=== PATIENT | female | born 1975 ===

== ENCOUNTER 2017-04-28 08:36 | Emergency (ER) | payer MEDICAID ==
[2017-04-28 08:45] VITALS: BMI 38.5
--- NOTE | 2017-04-28 09:12 | ED PDOC ---
Arrival/HPI - General Chief Complaint: Flu-like Symptoms Time Seen by Provider: 04/28/17 08:45 Historian: Patient - History of Present Illness Narrative History of Present Illness (Text): 04/28/17 09:11 A 41 year old female, who denies any past medical history, presents to the emergency department complaining of fever, congestion, cough and sore throat for the past three days. Reports she thinks she has the flu. Didn't get the flu shot. Patient denies any other complaints at this time. Time/Duration: < week Symptom Onset: Sudden Symptom Course: Unchanged Activities at Onset: Rest Context: Home Past Medical History - Provider Review Nursing Documentation Reviewed: Yes - Infectious Disease Hx of Infectious Diseases: None - Reproductive Menopause: No - Psychiatric Hx Substance Use: No Family/Social History - Physician Review Nursing Documentation Reviewed: Yes Family/Social History: No Known Family HX Smoking Status: Unknown If Ever Smoked Hx Alcohol Use: No Hx Substance Use: No Allergies/Home Meds Allergies/Adverse Reactions: Allergies No Known Allergies Allergy (Verified 04/28/17 08:52) Home Medications: Home Meds Medication Instructions Recorded Confirmed No Known Home Med 04/28/17 04/28/17 Review of Systems - Physician Review All systems were reviewed & negative as marked: Yes - Review of Systems Constitutional: Fevers ENT: Sore Throat, Sinus Congestion Respiratory: Cough Physical Exam Vital Signs Reviewed: Yes Vital Signs Temp Pulse Resp BP Pulse Ox 04/28/17 14:14 98.7 F 108 H 18 116/69 98 04/28/17 12:59 114 H 18 131/77 98 04/28/17 11:56 99.3 F 105 H 18 138/86 98 04/28/17 10:03 110 H 19 119/75 97 04/28/17 08:44 100.7 F H 115 H 20 163/89 H 97 Temperature: Febrile Blood Pressure: Hypertensive Pulse: Tachycardic Respiratory Rate: Normal Appearance: Positive for: Well-Appearing, Non-Toxic, Comfortable Pain Distress: None Mental Status: Positive for: Alert and Oriented X 3 - Systems Exam Head: Present: Atraumatic, Normocephalic Pupils: Present: PERRL Extroacular Muscles: Present: EOMI Conjunctiva: Present: Normal Mouth: Present: Moist Mucous Membranes Pharnyx: Present: ERYTHEMA Neck: Present: Normal Range of Motion Respiratory/Chest: Present: Clear to Auscultation, Good Air Exchange. No: Respiratory Distress, Accessory Muscle Use Cardiovascular: Present: Regular Rate and Rhythm, Normal S1, S2. No: Murmurs Abdomen: Present: Normal Bowel Sounds. No: Tenderness, Distention, Peritoneal Signs Back: Present: Normal Inspection Upper Extremity: Present: Normal Inspection. No: Cyanosis, Edema Lower Extremity: Present: Normal Inspection. No: Edema Neurological: Present: GCS=15, CN II-XII Intact, Speech Normal Skin: Present: Warm, Dry, Normal Color. No: Rashes Psychiatric: Present: Alert, Oriented x 3, Normal Insight, Normal Concentration Medical Decision Making ED Course and Treatment: 04/28/17 09:11 Impression: A 41 year old female with fever, cough, congestion and sore throat. Plan: -- chest xray -- CT chest -- Tylenol, Rocephin, Zithromax -- Reassess and disposition Progress Notes: 04/28/17 09:55 chest xray- Creator : Sridhar Aragon MD IMPRESSION: No active disease. 04/28/17 11:27 CT Chest without contrast Creator : Sridhar Aragon MD FINDINGS: LUNGS: There is a focal area of consolidation in the right lower lobe posteriorly consistent with pneumonia. Air bronchograms are seen. Minimal patchy interstitial changes are seen in the right upper lobe. MEDIASTINUM: Unremarkable thoracic aorta. No aneurysm. Normal sized heart. Main pulmonary artery unremarkable. No vascular congestion. No lymphadenopathy. PLEURA: No pleural fluid. No pneumothorax. BONES: No fracture. No destructive lesion. UPPER ABDOMEN: Grossly unremarkable. OTHER FINDINGS: None. IMPRESSION: Focal area of consolidation in the right lower lobe consistent with pneumonia. = - Lab Interpretations Lab Results: 04/28/17 10:30 04/28/17 10:30 Lab Results 04/28/17 10:30: Urine Color Yellow, Urine Appearance Clear, Urine pH 6.0, Ur Specific [place] 1.020, Urine Protein Negative, Urine Glucose (UA) Negative, Urine Ketones Negative, Urine Blood Moderate H, Urine Nitrate Negative, Urine Bilirubin Negative, Urine Urobilinogen 0.2, Ur Leukocyte Esterase Negative, Urine RBC 15 - 20, Urine WBC 1 - 3, Ur Epithelial Cells 6 - 8, Urine Bacteria Many, Urine Other Uyeast 04/28/17 10:30: Influenza Typ A,B (EIA) Negative for flu a/b 04/28/17 10:30: Sodium 138, Potassium 4.2, Chloride 98, Carbon Dioxide 27, Anion Gap 17, BUN 9, Creatinine 0.6 L, Est GFR ( Amer) > 60, Est GFR (Non -Af Amer) > 60, Random Glucose 141 H, Calcium 9.0, Total Bilirubin 0.4, AST 30, ALT 45, Alkaline Phosphatase 61, Total Protein 7.8, Albumin 4.3, Globulin 3.5, Albumin/Globulin Ratio 1.2 04/28/17 10:30: PT 12.9 H, INR 1.12 H, APTT 29.4 04/28/17 10:30: WBC 15.2 H, RBC 4.37, Hgb 12.9, Hct 38.8, MCV 88.8, MCH 29.5, MCHC 33.2, RDW 12.7, Plt Count 242, MPV 9.4, Gran % 90.1 H, Lymph % (Auto) 4.2 L , [place] % (Auto) 5.3, Eos % (Auto) 0.3 L, Baso % (Auto) 0.1, Gran # 13.70 H, Lymph # (Auto) 0.6 L, [place] # (Auto) 0.8 H, Eos # (Auto) 0.0, Baso # (Auto) 0.02 , Neutrophils % (Manual) 84 H, Band Neutrophils % 6 H, Lymphocytes % (Manual) 4 L, Monocytes % (Manual) 5, Metamyelocytes % 1 - RAD Interpretation Radiology Orders: 04/28/17 09:05 CXR [CHEST TWO VIEWS (PA/LAT)] [RAD] Stat 04/28/17 10:41 CHEST W/O CONTRAST [CT] Stat - Medication Orders Current Medication Orders: Acetaminophen (Tylenol 325mg Tab) 650 mg PO Q6H PRN PRN Reason: Fever >100.4 F Albuterol Sulfate (Albuterol 0.083% Inhal Cassia (2.5 Mg/3 Ml) Ud) 2.5 mg IH Q2H PRN PRN Reason: Shortness of Breath Azithromycin (Zithromax) 250 mg PO DAILY TISHA PRN Reason: Protocol Famotidine (Pepcid) 20 mg PO BID [facility] Guaifenesin/Dextromethorphan (Robitussin Dm) 5 ml PO Q4H PRN PRN Reason: Cough Ceftriaxone Sodium (Rocephin 1 Gram Ivpb) 1 gm in 100 mls @ 100 mls/hr IVPB DAILY TISHA PRN Reason: Protocol Sodium Chloride (Sodium Chloride 0.9%) 100 mls @ 100 mls/hr IV .Q1H TISHA Last Admin: 04/28/17 13:59 Dose: 100 mls/hr eMAR Start Stop Document 04/28/17 13:59 OCS (Rec: 04/28/17 13:59 OCS [id number]) Intravenous Solution Start Date 04/28/17 Start Time 13:59 Ibuprofen (Motrin Tab) 400 mg PO Q6H PRN PRN Reason: pain, fever Oseltamivir Phosphate (Tamiflu Cap) 75 mg PO BID TISHA PRN Reason: Protocol Stop: 05/03/17 12:24 Discontinued Medications Acetaminophen (Tylenol 325mg Tab) 975 mg PO STAT STA Stop: 04/28/17 09:06 Last Admin: 04/28/17 09:53 Dose: 975 mg MAR Pain/Vitals Document 04/28/17 09:53 LAC (Rec: 04/28/17 09:54 LAC [id number] Pain Reassessment Is This A Pain ReAssessment? No Ceftriaxone Sodium (Rocephin 2 Gm Ivpb) 2 gm in 100 mls @ 100 mls/hr IVPB STAT STA PRN Reason: Protocol Stop: 04/28/17 10:49 Last Admin: 04/28/17 10:24 Dose: 100 mls/hr eMAR Start Stop Document 04/28/17 10:24 LAC (Rec: 04/28/17 10:24 LAC [id number]) Intravenous Solution Start Date 04/28/17 Start Time 10:24 End Date 04/28/17 End time 11:24 Total Infusion Time 60 Azithromycin (Zithromax 500mg In Ns) 500 mg in 250 mls @ 167 mls/hr IVPB STAT STA PRN Reason: Protocol Stop: 04/28/17 11:19 Last Admin: 04/28/17 12:31 Dose: 167 mls/hr eMAR Start Stop Document 04/28/17 12:31 LAC (Rec: 04/28/17 12:31 LAC [id number]) Intravenous Solution Start Date 04/28/17 Start Time 12:31 End Date 04/28/17 End time 13:31 Total Infusion Time 60 Azithromycin (Zithromax 500mg In Ns) 500 mg in 250 mls @ 167 mls/hr IVPB STAT STA PRN Reason: Protocol Stop: 04/28/17 13:08 Oseltamivir Phosphate (Tamiflu Cap) 75 mg PO STAT STA PRN Reason: Protocol Stop: 04/28/17 11:44 Last Admin: 04/28/17 12:58 Dose: 75 mg - Scribe Statement The provider has reviewed the documentation as recorded by the Marguerite Mohr Provider Scribe Attestation: All medical record entries made by the Marguerite were at my direction and personally dictated by me. I have reviewed the chart and agree that the record accurately reflects my personal performance of the history, physical exam, medical decision making, and the department course for this patient. I have also personally directed, reviewed, and agree with the discharge instructions and disposition. Disposition/Present on Arrival - Present on Arrival Any Indicators Present on Arrival: No History of DVT/PE: No History of Uncontrolled Diabetes: No Urinary Catheter: No History of Decub. Ulcer: No History Surgical Site Infection Following: None - Disposition Have Diagnosis and Disposition been Completed?: Yes Diagnosis: Sepsis, Pneumonia Disposition: HOSPITALIZED Disposition Time: 03:30 Condition: STABLE
[2017-04-28] MEDS ORDERED: cefTRIAXone 2 GM IN NS 2 GM/100 ML BAG IVPB STA (09:50)
[2017-04-28] MEDS ORDERED: Azithromycin 500MG/NS 250ml 500 MG/250 ML BAG IVPB STA ×2 (09:50→11:39)
--- NOTE | 2017-04-28 09:54 | RAD ---
HISTORY: cough COMPARISON: No prior. TECHNIQUE: Chest PA and lateral FINDINGS: LUNGS: No active pulmonary disease. PLEURA: No significant pleural effusion identified. No pneumothorax apparent. CARDIOVASCULAR: Normal. OSSEOUS STRUCTURES: No significant abnormalities. VISUALIZED UPPER ABDOMEN: Normal. OTHER FINDINGS: None. IMPRESSION: No active disease.
[2017-04-28 10:39] LABS: BASO # 0.02 K/mm3 (0.0-2.0); BASO % 0.1 % (0.0-3.0); EOS % 0.3 % (1.5-5.0); GRAN % 90.1 % (50.0-68.0); HEMOGLOBIN 12.9 g/dL (12.0-16.0); LYMPH # 0.6 (1.2-3.4); LYMPH % 4.2 % (22.0-35.0); MEAN CELL VOLUME 88.8 fl (80.0-105.0); MEAN CORPUSCULAR HEMOGLOBIN 29.5 pg (25.0-35.0); MEAN CORPUSCULAR HGB CONC 33.2 g/dl (31.0-37.0); MEAN PLATELET VOLUME 9.4 fl (7.0-11.0); MONO # 0.8 (0.1-0.6); MONO % 5.3 % (1.0-6.0); PLATELET COUNT 242 10^3/uL (120.0-450.0); RBC 4.37 10^6/uL (3.5-6.1); RED CELL DISTRIBUTION WIDTH 12.7 % (11.5-14.5); URINE BILIRUBIN NEGATIVE (NEGATIVE); URINE BLOOD MODERATE (NEGATIVE); URINE GLUCOSE (UA) NEGATIVE (NEGATIVE); URINE LEUKOCYTE ESTERASE NEGATIVE Leu/uL (NEGATIVE); URINE NITRATE NEGATIVE (NEGATIVE); URINE PROTEIN NEGATIVE mg/dL (<30 mg/dL); URINE UROBILINOGEN 0.2 E.U./dL (<1 E.U./dL); WHITE BLOOD COUNT 15.2 10^3/ul (4.5-11.0)
[2017-04-28 10:40] LABS: URINE APPEARANCE CLEAR (CLEAR); URINE COLOR YELLOW (YELLOW)
[2017-04-28 10:48] LABS: URINE RBC 15 - 20 /hpf (0-2)
[2017-04-28 10:49] LABS: URINE BACTERIA MANY (NEG)
[2017-04-28 10:50] LABS: ALB/GLOB RATIO 1.2 (1.1-1.8); ALBUMIN 4.3 g/dL (3.0-4.8); GFR AFRICAN-AMERICAN > 60; GFR NON-AFRICAN AMERICAN > 60
[2017-04-28 10:51] LABS: INR 1.12 (0.93-1.08); PARTIAL THROMBOPLASTIN TIME 29.4 Seconds (25.1-36.5); PROTHROMBIN TIME 12.9 SECONDS (9.4-12.5)
[2017-04-28 11:08] LABS: BAND 6 % (0-2); LYMPHOCYTE 4 % (22.0-35.0); METAMYELOCYTE 1 %; MONOCYTE 5 % (1.0-6.0); NEUTROPHIL 84 % (50.0-70.0)
--- NOTE | 2017-04-28 11:25 | CT ---
PROCEDURE: CT Chest without contrast HISTORY: cough r/o pna COMPARISON: None. TECHNIQUE: Contiguous axial images were obtained through the chest without intravenous contrast enhancement. Sagittal and coronal reconstructions were performed. Radiation dose (DLP): 496 mGy-cm. This CT exam was performed using one or more of the following dose reduction techniques: Automated exposure control, adjustment of the mA and/or kV according to patient size, and/or use of iterative reconstruction technique. FINDINGS: LUNGS: There is a focal area of consolidation in the right lower lobe posteriorly consistent with pneumonia. Air bronchograms are seen. Minimal patchy interstitial changes are seen in the right upper lobe. MEDIASTINUM: Unremarkable thoracic aorta. No aneurysm. Normal sized heart. Main pulmonary artery unremarkable. No vascular congestion. No lymphadenopathy. PLEURA: No pleural fluid. No pneumothorax. BONES: No fracture. No destructive lesion. UPPER ABDOMEN: Grossly unremarkable. OTHER FINDINGS: None. IMPRESSION: Focal area of consolidation in the right lower lobe consistent with pneumonia.
[2017-04-28 11:26] LABS: ALT/SGPT 45 U/L (7-56); AST/SGOT 30 U/L (14-36); BLOOD UREA NITROGEN 9 mg/dL (7-21)
[2017-04-28] MEDS ORDERED: Albuterol 0.083% Inhal Sol (2.5 mg/3 mL) UD IH PRN (12:20)
--- NOTE | 2017-04-28 12:37 | CP.PCM.HP ---
<Viktor Benson - Last Filed: 04/28/17 13:25> History of Present Illness - History of Present Illness History of Present Illness: PGY-1 H&P for [address] Santo Hospitalist Service: CC: Flu-like symptoms This is a 41 year old female with no significant PMHx who presents complaining of flu-like symptoms for the past 3 days. Patient states that she began having generalized body aches along with fever, sore throat, cough productive with green sputum, post nasal drip. Patient stated that she felt very weak today, and that is what prompted her to seek medical help. Patient has tried Motrin which has helped with the body aches. Patient unable to describe what kind of pain she is experiencing but states that it is an 8/10. 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 PMHx: Denies PSHx: Denies Allergies: NKDA Social: Former smoker, started age 16 and smoked 1 ppd until quitting 12 years ago. Social drinker (wine). Denies drug use. 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 Family Hx: Mother with asthma and hypertension PMD: Dr. Scott at the [facility] Home medications: Motrin and Excedrin prn Present on Admission - Present on Admission Any Indicators Present on Admission: No Review of Systems - Constitutional Constitutional: Fever, Other (generalized body aches). absent: Chills - EENT Eyes: absent: Change in Vision Ears: absent: Decreased Hearing Nose/Mouth/Throat: Post Nasal Drip, Sore Throat - Cardiovascular Cardiovascular: absent: Chest Pain - Respiratory Respiratory: Cough (with green sputum). absent: Dyspnea, Wheezing - Gastrointestinal Gastrointestinal: absent: Abdominal Pain, Constipation, Diarrhea, Nausea, Vomiting - Musculoskeletal Musculoskeletal: Other (generalized body aches) - Integumentary Integumentary: absent: Rash - Neurological Neurological: Weakness - Psychiatric Psychiatric: absent: Anxiety - Endocrine Endocrine: absent: Palpitations Past Patient History - Infectious Disease Hx of Infectious Diseases: None - Past Social History Smoking Status: Unknown If Ever Smoked - PSYCHIATRIC Hx Substance Use: No Meds Allergies/Adverse Reactions: Allergies Allergy/AdvReac Type Severity Reaction Status Date / Time No Known Allergies Allergy Verified 04/28/17 08:52 Physical Exam - Constitutional Appears: No Acute Distress - Head Exam Head Exam: ATRAUMATIC, NORMOCEPHALIC - Eye Exam Eye Exam: EOMI, PERRL - ENT Exam Additional comments: Erythematous and boggy nasal turbinates No pharyngeal exudates or erythema. Mucous membranes moist. Tympanic membranes intact without effusion. - Neck Exam Neck exam: Negative for: Lymphadenopathy - Respiratory Exam Respiratory Exam: Decreased Breath Sounds (Right lower lung field), Clear to Auscultation Bilateral, NORMAL BREATHING PATTERN. absent: Rales, Rhonchi, Wheezes - Cardiovascular Exam Cardiovascular Exam: REGULAR RHYTHM, +S1, +S2 - GI/Abdominal Exam GI & Abdominal Exam: Normal Bowel Sounds, Soft. absent: Distended, Firm, Guarding, Tenderness Additional comments: obese body habitus - Extremities Exam Extremities exam: Positive for: pedal pulses present. Negative for: pedal edema , tenderness - Back Exam Back exam: absent: CVA tenderness (L), CVA tenderness (R) - Neurological Exam Neurological exam: Alert, CN II-XII Intact, Oriented x3 - Psychiatric Exam Psychiatric exam: Normal Affect, Normal Mood - Skin Skin Exam: Dry, Intact, Normal Color, Warm Results - Vital Signs Recent Vital Signs: Last Vital Signs Temp 99.3 F 04/28/17 11:56 Pulse 105 H 04/28/17 11:56 Resp 18 04/28/17 11:56 BP 138/86 04/28/17 11:56 Pulse Ox 98 04/28/17 11:56 - Labs Result Diagrams: 04/28/17 10:30 04/28/17 10:30 Assessment & Plan - Assessment and Plan (Free Text) Assessment: This is a 41 year old female with no significant past medical history presenting for flu-like symptoms for the past 3 days. Patient found to have right lower lobe pneumonia likely superimposed over viral syndrome. Plan: 1. Right lower Lobe Pneumonia As evidenced by consolidation on the right lower lobe seen on CT imaging Azithromycin 500 mg IV daily Rocephin 1 gm IV daily Alternate Tylenol and Motrin prn for symptomatic management Robitussin DM prn 2. Viral syndrome Although rapid flu negative, will treat empirically with 5 days of Tamiflu Encouraged hydration 3. Tobacco abuse Approximately 14 pack year history, quit 12 years ago 4. Prophylaxis GI: Pepcid DVT: SCDs Patient seen and discussed with Dr. Santo <Rangasamy,Ajantha - Last Filed: 04/28/17 16:27> Results - Vital Signs Recent Vital Signs: Last Vital Signs Temp 98.7 F 04/28/17 14:14 Pulse 108 H 04/28/17 14:14 Resp 18 04/28/17 14:14 BP 116/69 04/28/17 14:14 Pulse Ox 98 04/28/17 14:14 - Labs Result Diagrams: 04/28/17 10:30 04/28/17 10:30 Attending/Attestation - Attestation I have personally seen and examined this patient.: Yes I have fully participated in the care of the patient.: Yes I have reviewed all pertinent clinical information: Yes Notes (Text): 04/28/17 15:55 attending note; Patient seen and examined with resident. Patient is a 41 year old female with no significant PMHx who presents complaining of flu-like symptoms for the past 3 days. Patient states that she began having generalized body aches along with fever, sore throat, cough productive with green sputum, post nasal drip. chest CT showed focal area of consolidation in the right lower lobe. Started on IV Rocephin and Zithromax. Tylenol/Motrin for fever control. Generalized malaise; continue IV fluids. rapid flu is negative. monitor fever trend. Upon discharge the patient will follow-up with PMD . 04/28/17 16:27
[2017-04-28] MEDS ORDERED: Sodium Chloride 0.9% 100 ML IV SCH (13:15)
[2017-04-28] MEDS ORDERED: guaiFENesin DM 100 mg-10 mg/5 ml UD PO PRN (13:35)
[2017-04-28] MEDS ORDERED: Sodium Chloride 0.9% 1,000 ML IV SCH (22:51)
[2017-04-29 06:45] LABS: BASO # 0.01 K/mm3 (0.0-2.0); BASO % 0.1 % (0.0-3.0); EOS # 0.2 (0.0-0.7); GRAN # 4.95 (1.4-6.5); GRAN % 63.4 % (50.0-68.0); LYMPH # 1.9 (1.2-3.4); LYMPH % 24.1 % (22.0-35.0); MEAN CORPUSCULAR HEMOGLOBIN 29.4 pg (25.0-35.0); MEAN CORPUSCULAR HGB CONC 33.1 g/dl (31.0-37.0); MEAN PLATELET VOLUME 9.5 fl (7.0-11.0); MONO # 0.8 (0.1-0.6); MONO % 10.4 % (1.0-6.0); RBC 4.08 10^6/uL (3.5-6.1); RED CELL DISTRIBUTION WIDTH 12.7 % (11.5-14.5); WHITE BLOOD COUNT 7.8 10^3/ul (4.5-11.0)
[2017-04-29 07:47] LABS: ALB/GLOB RATIO 1.2 (1.1-1.8); ALBUMIN 3.7 g/dL (3.0-4.8); ALT/SGPT 35 U/L (7-56); AST/SGOT 25 U/L (14-36); BLOOD UREA NITROGEN 7 mg/dL (7-21); CALCIUM 8.3 mg/dL (8.4-10.5); GFR AFRICAN-AMERICAN > 60; GFR NON-AFRICAN AMERICAN > 60
[2017-04-29 08:06] VITALS: RESP 16; O2SAT 99
[2017-04-29] MEDS ORDERED: cefTRIAXone 1 gm 1 GM/100 ML BAG IVPB SCH (10:00)
--- NOTE | 2017-04-29 10:02 | CP.PCM.DIS ---
<Viktor Benson S - Last Filed: 04/29/17 12:16> Provider - Provider Date of Admission: 04/28/17 11:42 Attending physician: Valerie Santo MD Primary care physician: Dr. Scott Time Spent in preparation of Discharge (in minutes): 35 Diagnosis - Discharge Diagnosis (1) Pneumonia Status: Acute Priority: High (2) Viral syndrome Status: Acute Priority: High Hospital Course - Lab Results Lab Results: Most Recent Lab Values WBC 7.8 10^3/ul (4.5-11.0) D 04/29/17 06:20 RBC 4.08 10^6/uL (3.5-6.1) 04/29/17 06:20 Hgb 12.0 g/dL (12.0-16.0) 04/29/17 06:20 Hct 36.3 % (36.0-48.0) 04/29/17 06:20 MCV 89.0 fl (80.0-105.0) 04/29/17 06:20 MCH 29.4 pg (25.0-35.0) 04/29/17 06:20 MCHC 33.1 g/dl (31.0-37.0) 04/29/17 06:20 RDW 12.7 % (11.5-14.5) 04/29/17 06:20 Plt Count 243 10^3/uL (120.0-450.0) 04/29/17 06:20 MPV 9.5 fl (7.0-11.0) 04/29/17 06:20 Gran % 63.4 % (50.0-68.0) 04/29/17 06:20 Lymph % (Auto) 24.1 % (22.0-35.0) 04/29/17 06:20 [place] % (Auto) 10.4 % (1.0-6.0) H 04/29/17 06:20 Eos % (Auto) 2.0 % (1.5-5.0) 04/29/17 06:20 Baso % (Auto) 0.1 % (0.0-3.0) 04/29/17 06:20 Gran # 4.95 (1.4-6.5) 04/29/17 06:20 Lymph # (Auto) 1.9 (1.2-3.4) 04/29/17 06:20 [place] # (Auto) 0.8 (0.1-0.6) H 04/29/17 06:20 Eos # (Auto) 0.2 (0.0-0.7) 04/29/17 06:20 Baso # (Auto) 0.01 K/mm3 (0.0-2.0) 04/29/17 06:20 Neutrophils % (Manual) 84 % (50.0-70.0) H 04/28/17 10:30 Band Neutrophils % 6 % (0-2) H 04/28/17 10:30 Lymphocytes % (Manual) 4 % (22.0-35.0) L 04/28/17 10:30 Monocytes % (Manual) 5 % (1.0-6.0) 04/28/17 10:30 Metamyelocytes % 1 % 04/28/17 10:30 PT 12.9 SECONDS (9.4-12.5) H 04/28/17 10:30 INR 1.12 (0.93-1.08) H 04/28/17 10:30 APTT 29.4 Seconds (25.1-36.5) 04/28/17 10:30 Sodium 140 mmol/L (132-148) 04/29/17 06:20 Potassium 3.8 mmol/L (3.6-5.0) 04/29/17 06:20 Chloride 103 mmol/L (98-107) 04/29/17 06:20 Carbon Dioxide 27 mmol/L (21-33) 04/29/17 06:20 Anion Gap 14 (10-20) 04/29/17 06:20 BUN 7 mg/dL (7-21) 04/29/17 06:20 Creatinine 0.6 mg/dl (0.7-1.2) L 04/29/17 06:20 Est GFR ( Amer) > 60 04/29/17 06:20 Est GFR (Non-Af Amer) > 60 04/29/17 06:20 Random Glucose 105 mg/dL (70-110) 04/29/17 06:20 Calcium 8.3 mg/dL (8.4-10.5) L 04/29/17 06:20 Total Bilirubin 0.3 mg/dL (0.2-1.3) 04/29/17 06:20 AST 25 U/L (14-36) 04/29/17 06:20 ALT 35 U/L (7-56) 04/29/17 06:20 Alkaline Phosphatase 57 U/L (38-126) 04/29/17 06:20 Total Protein 6.9 g/dL (5.8-8.3) 04/29/17 06:20 Albumin 3.7 g/dL (3.0-4.8) 04/29/17 06:20 Globulin 3.1 gm/dL 04/29/17 06:20 Albumin/Globulin Ratio 1.2 (1.1-1.8) 04/29/17 06:20 Urine Color Yellow (YELLOW) 04/28/17 10:30 Urine Appearance Clear (CLEAR) 04/28/17 10:30 Urine pH 6.0 (4.7-8.0) 04/28/17 10:30 Ur Specific [place] 1.020 (1.005-1.035) 04/28/17 10:30 Urine Protein Negative mg/dL (<30 mg/dL) 04/28/17 10:30 Urine Glucose (UA) Negative mg/dL (NEGATIVE) 04/28/17 10:30 Urine Ketones Negative mg/dL (NEGATIVE) 04/28/17 10:30 Urine Blood Moderate (NEGATIVE) H 04/28/17 10:30 Urine Nitrate Negative (NEGATIVE) 04/28/17 10:30 Urine Bilirubin Negative (NEGATIVE) 04/28/17 10:30 Urine Urobilinogen 0.2 E.U./dL (<1 E.U./dL) 04/28/17 10:30 Ur Leukocyte Esterase Negative [place]/uL (NEGATIVE) 04/28/17 10:30 Urine RBC 15 - 20 /hpf (0-2) 04/28/17 10:30 Urine WBC 1 - 3 /hpf (0-6) 04/28/17 10:30 Ur Epithelial Cells 6 - 8 /hpf (0-5) 04/28/17 10:30 Urine Bacteria Many (NEG) 04/28/17 10:30 Urine Other Uyeast 04/28/17 10:30 Influenza Typ A,B (EIA) Negative for flu a/b (NEGATIVE) 04/28/17 10:30 - Hospital Course Hospital Course: Initial History of Present Illness on 04/28/17: "This is a 41 year old female with no significant PMHx who presents complaining of flu-like symptoms for the past 3 days. Patient states that she began having generalized body aches along with fever, sore throat, cough productive with green sputum, post nasal drip. Patient stated that she felt very weak today, and that is what prompted her to seek medical help. Patient has tried Motrin which has helped with the body aches. Patient unable to describe what kind of pain she is experiencing but states that it is an 8/10. 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 Evidence of pneumonia seen on Chest CT without contrast. Although patient had rapid flu negative, patient was treated empirically due to her presenting symptoms. On day of discharge, patient was clinically improved and walking around her room saturating well on room air. Patient discharged with prescriptions for Tamiflu and Levaquin and instructed to follow with her PMD Dr. Scott. This is a summary of the hospital course. For more information, refer to the medical records. Discharge Exam - Head Exam Head Exam: ATRAUMATIC, NORMOCEPHALIC - Eye Exam Eye Exam: EOMI, Normal appearance - ENT Exam ENT Exam: Mucous Membranes Moist - Respiratory Exam Respiratory Exam: Clear to PA & Lateral, NORMAL BREATHING PATTERN. absent: Rales, Rhonchi, Wheezes - Cardiovascular Exam Cardiovascular Exam: REGULAR RHYTHM, +S1, +S2 - GI/Abdominal Exam GI & Abdominal Exam: Normal Bowel Sounds, Soft. absent: Tenderness - Extremities Exam Extremities exam: pedal pulses present - Back Exam Back exam: absent: CVA tenderness (L), CVA tenderness (R) - Neurological Exam Neurological exam: Alert, CN II-XII Intact, Oriented x3 - Psychiatric Exam Psychiatric exam: Normal Affect, Normal Mood - Skin Skin Exam: Dry, Intact, Normal Color, Warm Discharge Plan - Discharge Medications Prescriptions: guaiFENesin/Dextromethorphan [Robitussin DM] 5 ml PO Q4H PRN #1 bottle PRN Reason: Cough Ibuprofen [Motrin] 600 mg PO Q8H PRN #15 tab PRN Reason: Pain, Moderate (4-7) Levofloxacin [Levaquin] 750 mg PO DAILY #7 tablet Oseltamivir [Tamiflu Cap] 75 mg PO BID #8 cap - Follow Up Plan Condition: STABLE Disposition: HOME/ ROUTINE Instructions: Community-Acquired Pneumonia in Adults Additional Instructions: 1. Please follow up with PMD next week. 2. Please take Tamiflu and Levaquin (Antibiotic) as directed. 3. Use Robitussin for cough. Can use Tylenol for fever. Referrals: Tracee Scott [Family Provider] - <Valerie Santo - Last Filed: 04/29/17 16:05> Provider - Provider Date of Admission: 04/28/17 11:42 Attending physician: Valerie Santo MD Hospital Course - Lab Results Lab Results: Most Recent Lab Values WBC 7.8 10^3/ul (4.5-11.0) D 04/29/17 06:20 RBC 4.08 10^6/uL (3.5-6.1) 04/29/17 06:20 Hgb 12.0 g/dL (12.0-16.0) 04/29/17 06:20 Hct 36.3 % (36.0-48.0) 04/29/17 06:20 MCV 89.0 fl (80.0-105.0) 04/29/17 06:20 MCH 29.4 pg (25.0-35.0) 04/29/17 06:20 MCHC 33.1 g/dl (31.0-37.0) 04/29/17 06:20 RDW 12.7 % (11.5-14.5) 04/29/17 06:20 Plt Count 243 10^3/uL (120.0-450.0) 04/29/17 06:20 MPV 9.5 fl (7.0-11.0) 04/29/17 06:20 Gran % 63.4 % (50.0-68.0) 04/29/17 06:20 Lymph % (Auto) 24.1 % (22.0-35.0) 04/29/17 06:20 [place] % (Auto) 10.4 % (1.0-6.0) H 04/29/17 06:20 Eos % (Auto) 2.0 % (1.5-5.0) 04/29/17 06:20 Baso % (Auto) 0.1 % (0.0-3.0) 04/29/17 06:20 Gran # 4.95 (1.4-6.5) 04/29/17 06:20 Lymph # (Auto) 1.9 (1.2-3.4) 04/29/17 06:20 [place] # (Auto) 0.8 (0.1-0.6) H 04/29/17 06:20 Eos # (Auto) 0.2 (0.0-0.7) 04/29/17 06:20 Baso # (Auto) 0.01 K/mm3 (0.0-2.0) 04/29/17 06:20 Neutrophils % (Manual) 84 % (50.0-70.0) H 04/28/17 10:30 Band Neutrophils % 6 % (0-2) H 04/28/17 10:30 Lymphocytes % (Manual) 4 % (22.0-35.0) L 04/28/17 10:30 Monocytes % (Manual) 5 % (1.0-6.0) 04/28/17 10:30 Metamyelocytes % 1 % 04/28/17 10:30 PT 12.9 SECONDS (9.4-12.5) H 04/28/17 10:30 INR 1.12 (0.93-1.08) H 04/28/17 10:30 APTT 29.4 Seconds (25.1-36.5) 04/28/17 10:30 Sodium 140 mmol/L (132-148) 04/29/17 06:20 Potassium 3.8 mmol/L (3.6-5.0) 04/29/17 06:20 Chloride 103 mmol/L (98-107) 04/29/17 06:20 Carbon Dioxide 27 mmol/L (21-33) 04/29/17 06:20 Anion Gap 14 (10-20) 04/29/17 06:20 BUN 7 mg/dL (7-21) 04/29/17 06:20 Creatinine 0.6 mg/dl (0.7-1.2) L 04/29/17 06:20 Est GFR ( Amer) > 60 04/29/17 06:20 Est GFR (Non-Af Amer) > 60 04/29/17 06:20 Random Glucose 105 mg/dL (70-110) 04/29/17 06:20 Calcium 8.3 mg/dL (8.4-10.5) L 04/29/17 06:20 Total Bilirubin 0.3 mg/dL (0.2-1.3) 04/29/17 06:20 AST 25 U/L (14-36) 04/29/17 06:20 ALT 35 U/L (7-56) 04/29/17 06:20 Alkaline Phosphatase 57 U/L (38-126) 04/29/17 06:20 Total Protein 6.9 g/dL (5.8-8.3) 04/29/17 06:20 Albumin 3.7 g/dL (3.0-4.8) 04/29/17 06:20 Globulin 3.1 gm/dL 04/29/17 06:20 Albumin/Globulin Ratio 1.2 (1.1-1.8) 04/29/17 06:20 Urine Color Yellow (YELLOW) 04/28/17 10:30 Urine Appearance Clear (CLEAR) 04/28/17 10:30 Urine pH 6.0 (4.7-8.0) 04/28/17 10:30 Ur Specific [place] 1.020 (1.005-1.035) 04/28/17 10:30 Urine Protein Negative mg/dL (<30 mg/dL) 04/28/17 10:30 Urine Glucose (UA) Negative mg/dL (NEGATIVE) 04/28/17 10:30 Urine Ketones Negative mg/dL (NEGATIVE) 04/28/17 10:30 Urine Blood Moderate (NEGATIVE) H 04/28/17 10:30 Urine Nitrate Negative (NEGATIVE) 04/28/17 10:30 Urine Bilirubin Negative (NEGATIVE) 04/28/17 10:30 Urine Urobilinogen 0.2 E.U./dL (<1 E.U./dL) 04/28/17 10:30 Ur Leukocyte Esterase Negative [place]/uL (NEGATIVE) 04/28/17 10:30 Urine RBC 15 - 20 /hpf (0-2) 04/28/17 10:30 Urine WBC 1 - 3 /hpf (0-6) 04/28/17 10:30 Ur Epithelial Cells 6 - 8 /hpf (0-5) 04/28/17 10:30 Urine Bacteria Many (NEG) 04/28/17 10:30 Urine Other Uyeast 04/28/17 10:30 Influenza Typ A,B (EIA) Negative for flu a/b (NEGATIVE) 04/28/17 10:30 Attending/Attestation - Attestation I have personally seen and examined this patient.: Yes I have fully participated in the care of the patient.: Yes I have reviewed all pertinent clinical information, including history, physical exam and plan: Yes Notes (Text): 04/29/17 16:04 attending note; Patient seen and examined with resident. Patient is a 41 year old female with no significant PMHx who presents complaining of flu-like symptoms for the past 3 days. Patient states that she began having generalized body aches along with fever, sore throat, cough productive with green sputum, post nasal drip. chest CT showed focal area of consolidation in the right lower lobe. Treated with IV Rocephin and Zithromax. Tylenol/Motrin for fever control. Generalized malaise;treated with IV fluids. rapid flu is negative. patient clinically improved. Currently afebrile and nontoxic. Still have some mild cough. patient will be discharged home. tolerating diet well. Ambulating fine. Vitals stable. Upon discharge the patient will follow-up with PMD .
[2017-04-29 11:54] VITALS: BP 122/78; PULSE 67; TEMP 99.1
== END 2017-04-29 11:55 | disposition home or self-care (01) ==
LOC: ED 08:36 → UNDOADMOB 11:42 → ERH 11:42 → INTOOBSV 11:42 → ERH 04-29 01:47
DX: A41.9 Sepsis, unspecified organism (principal); J18.9 Pneumonia, unspecified organism; Z87.891 Personal history of nicotine dependence
CPT/HCPCS: 71046; 71250; 80053; 81001; 85025; 85610; 85730; 87040; 87086; 87804; 96365; 96366; 96367; 99285; J0456; J0696